=== PATIENT | female | born 1945 | race Two or more races ===

== ENCOUNTER → 2024-11-12 | Outpatient (CLI) | payer MEDICAID ==
[2024-11-12 08:42] LABS: Urine Bacteria None Seen /hpf (None Seen)
[2024-11-12 08:48] LABS: Basophils # (auto) 0 10 ^3/uL (0-0.2); Hemoglobin 13.6 g/dL (12.2-16.2)
[2024-11-12 08:50] LABS: Basophils % (auto) 0.4 % (0.0-2.0); Eosinophils # (auto) 0.7 10 ^3/uL (0-0.8); Eosinophils % (auto) 10.7 % (0.0-7.0); Hematocrit 42.2 % (36.0-46.0); Lymphocytes # (auto) 1.2 10 ^3/uL (0.4-5.4); Mean Corpuscular Hemoglobin 25.6 pg (28.0-32.0); Mean Corpuscular Hgb Conc. 32.2 g/dL (32.0-36.0); Mean Corpuscular Volume 79.5 fL (80.0-100.0); Monocytes # (auto) 0.5 10 ^3/uL (0-1.3); Monocytes % (auto) 6.7 % (0.0-12.0); Neutrophils # (auto) 4.3 10 ^3/uL (1.6-8.6); Neutrophils % (auto) 64.2 % (37.0-80.0); Platelet Count (auto) 296 10^3/uL (140-450); Red Cell Distribution Width 16.3 % (11.8-14.3); White Blood Cell 6.8 10^3/uL (4.4-10.8)
[2024-11-12 10:08] LABS: Alanine Aminotransferase 17 U/L (7-40); Albumin 4.2 g/dL (3.2-4.8); Alkaline Phosphatase 81 U/L (46-116); Anion Gap 7 (5-15); Aspartate Aminotransferase 19 U/L (13-40); BUN/Creatinine Ratio 12.4 (10.0-20.0); Blood Urea Nitrogen 13 mg/dL (9-23); Calcium 9.8 mg/dL (8.7-10.4); Carbon Dioxide 29 mmol/L (20-31); Chloride 105 mmol/L (98-107); Cholesterol 124 mg/dL (< 200); LDL Cholesterol 70 mg/dL (< 100); Potassium 4.8 mmol/L (3.5-5.1); Sodium 141 mmol/L (136-145)
[2024-11-12 10:09] LABS: Bilirubin, Total 0.4 mg/dL (0.2-1.0); Glucose 224 mg/dL (74-106); HDL Cholesterol 33 mg/dL (40-59); Total Protein 7.4 g/dL (5.7-8.2); Triglycerides 152 mg/dL (< 150)
[2024-11-12 11:15] LABS: Urine Blood Negative /uL (Negative); Urine Clarity Clear (Clear); Urine Color Light-Yellow (Yellow); Urine Protein, UAD Negative (Negative); Urine Specific Gravity 1.016 (1.001-1.035); Urine Squamous Epithelial Cell None Seen /hpf (<5); Urine Urobilinogen Normal (Negative); Urine WBC 1 /hpf (0 - 5)
== END | disposition home or self-care (01) ==
LOC: LAB 08:25
PROVIDERS: ATTEND Internal Medicine
DX: E78.49 Other hyperlipidemia (principal); E61.2 Magnesium deficiency; D51.9 Vitamin B12 deficiency anemia, unspecified; E55.9 Vitamin D deficiency, unspecified; R94.6 Abnormal results of thyroid function studies; R73.09 Other abnormal glucose; R68.89 Other general symptoms and signs; R79.89 Other specified abnormal findings of blood chemistry; R82.998 Other abnormal findings in urine; R82.90 Unspecified abnormal findings in urine
CPT/HCPCS: 36415; 80053; 80061; 81001; 82306; 82746; 83036; 84443; 85025; 87086

== ENCOUNTER 2025-01-17 13:18 | Inpatient (IN) | payer MEDICAID ==
[~2025-01-17] VITALS: Ht 157.5 cm; Wt 70.0 kg
[2025-01-17] MEDS: SODIUM CHLORIDE 0.9% 1,000 ML IV ONE ×3 (14:44→18:00)
[2025-01-17] MEDS: ONDANSETRON HCL 4 MG/2 ML VIAL IV ONE (14:44)
[2025-01-17 14:58] VITALS: PULSE 81; RESP 16; O2SAT 97
[2025-01-17 15:01] LABS: Urine Bacteria None Seen /hpf (None Seen)
[2025-01-17] MEDS: FAMOTIDINE (10MG/ML) 2ML VL IV ONE (15:10)
[2025-01-17] MEDS: diphenhdrAMINE HCL 50 MG/1 ML VL IV ONE (15:10)
[2025-01-17 15:12] LABS: Urine Blood Negative /uL (Negative); Urine Clarity Clear (Clear); Urine Color Light-Yellow (Yellow); Urine Protein, UAD Negative (Negative); Urine Specific Gravity 1.018 (1.001-1.035); Urine Squamous Epithelial Cell None Seen /hpf (<5); Urine Urobilinogen Normal (Negative); Urine WBC 1 /HPF (0-5)
[2025-01-17 15:17] LABS: Basophils # (auto) 0.1 10 ^3/uL (0-0.2); Eosinophils # (auto) 0.2 10 ^3/uL (0-0.8); Lymphocytes # (auto) 2.2 10 ^3/uL (0.4-5.4); Monocytes # (auto) 0.4 10 ^3/uL (0-1.3)
[2025-01-17 15:19] LABS: Basophils % (auto) 0.7 % (0.0-2.0); Eosinophils % (auto) 2.2 % (0.0-7.0); Hemoglobin 12.4 g/dL (12.2-16.2); Lymphocytes % (auto) 29.9 % (10.0-50.0); Mean Corpuscular Hemoglobin 25.5 pg (28.0-32.0); Mean Corpuscular Hgb Conc. 31.7 g/dL (32.0-36.0); Mean Corpuscular Volume 80.4 fL (80.0-100.0); Neutrophils # (auto) 4.5 10 ^3/uL (1.6-8.6); Neutrophils % (auto) 61.2 % (37.0-80.0); Platelet Count (auto) 238 10^3/uL (140-450); Red Blood Cells 4.86 10^6/uL (4.0-5.20); Red Cell Distribution Width 16.1 % (11.8-14.3); White Blood Cell 7.3 10^3/uL (4.4-10.8)
[2025-01-17 15:32] LABS: Alanine Aminotransferase 16 U/L (7-40); Alkaline Phosphatase 89 U/L (46-116); Anion Gap 8 (5-15); Aspartate Aminotransferase 16 U/L (13-40); Blood Urea Nitrogen 11 mg/dL (9-23); Calcium 8.9 mg/dL (8.7-10.4); Carbon Dioxide 24 mmol/L (20-31); Sodium 142 mmol/L (136-145); Total Protein 6.5 g/dL (5.7-8.2)
[2025-01-17 15:35] LABS: Bilirubin, Total 0.3 mg/dL (0.2-1.0); Chloride 110 mmol/L (98-107); Glucose 223 mg/dL (74-106)
--- NOTE | 2025-01-17 15:37 | ED.PDOC ---
History of Present Illness(SKN HPI Comments 79y F who presents to the ED for chief complaint of nausea and vomiting acute on chronic. Pt had the following ED course: - per pt son, pt woke up earlier this AM compiling of generalized body itchiness. - pt was given Benadryl at approx 0100 this AM but states she continued to feel itching - pt also at approx 4 AM, started to have multiple vomiting episodes and despite giving Zofran, pt continued to have symptoms and pt was eventually brought to the ED for evaluation - pt now in the ED, has no noted rash and no noted vomiting episodes. Denies any abdominal pain or nausea or vomiting or any other acute symptoms except itchiness that is generalized. - pt son does state pt has history of vomiting episodes in the past and was previously prescribed Zofran - pt otherwise denies shortness of breath, chest pain, fever, cough, chills, diarrhea, patient is not on antibiotics. PMH: DM, HTN, GERD, UTI PSH: cholecystectomy Allergies: penicillins Social history: denies tobacco use, denies ETOH use, denies drug use Aziz: HPI: Poor Historian. REVIEW OF SYSTEMS: CONSTITUTIONAL: Denies acute: fever, diaphoresis, chills, generalized weakness. HEAD: Denies acute: headache, photophobia Eyes: Denies acute: Double vision, vision loss, eye pain, eye discharge. EARS: Denies acute: tinnitus, hearing loss, ear discharge, ear pain, THROAT: Denies acute: sore throat, swelling, difficulty swallowing , pain with swallowing, change in voice. NECK: Denies acute: neck pain, neck swelling, stiff neck. HEART: Denies acute : chest pain, palpitations, LUNGS: Denies acute: SOB, wheezing, cough, hemoptysis ABDOMEN: Denies acute: abdominal pain, , diarrhea, melena , hematemesis, hematochezia SKIN: Denies acute: rash, redness, lesions, . EXTREMITIES: Denies acute: calf pain, numbness, tingling, weakness, denies pain in extremity. Denies acute: Low back pain. Neuro: Denies acute: focal neurological deficit, motor or sensory focal neurological deficit, tremors, seizure like activity, confusion, dizziness, change in mental status, loss of bowel or bladder function, cauda equina like symptoms. : Denies acute: dysuria, hematuria, flank pain, increase in urinary frequency. PSYCH: Denies acute: hallucination, suicidal ideation, homicidal ideation. FEMALE: Denies acute: abnormal vaginal bleeding, foul odor, unusual discharge. PHYSICAL EXAM: General: no acute distress, awake and alert. Head: normocephalic, atraumatic. Neck: supple, trachea is midline, no swelling. Throat: Normal phonation. Eyes:, no erythema, no purulent discharge, no proptosis, no icterus. Heart: regular rate, regular rhythm, no significant murmur appreciated. Lungs: no apparent respiratory distress, Able to speak in full sentences. No wheezing, no rhonchi, no crackles. No stridors Clear to auscultation bilaterally. Abdomen: non tender to palpation, non distended, soft, no guarding, no rebound, + bowel sounds. Neuro: Awake, Alert, oriented to name, self, situation, follows commands GCS=15. Speech is normal. Skin: no petechia, no purpura, no cyanosis, non-pale, not jaundice. Lower extremities: --no - Pitting edema no deformity, no focal swelling, no calf TTP. Makes eye contact. moves all four extremities. Face: no apparent facial droop. Ambulating in the ED independently. ED COURSE: Chief Complaint: Urinary Time Seen by MD: 15:30 Primary Care Provider: SPENSER History of Present Illness: Nurses Notes, Medications, Allergies Allergies: Coded Allergies: Penicillins (Verified Allergy, Unknown, 01/17/25) Information Source: Patient, Relative Mode of Arrival: Ambulatory Brought in by: pt son Was a procedure done? Was a procedure done?: No Differential Diagnosis (INTG) Differential Diagnosis: Other (Sepsis, infection, dehydration, electrolyte abnormality) X-Ray, Labs, Meds, VS Vital Signs Date Time Temp Pulse Resp B/P (MAP) Pulse Ox O2 Delivery O2 Flow Rate FiO2 01/17/25 20:44 85 16 95 Room Air* 0 21 01/17/25 20:43 97.8 85 16 147/68 (94) 95 97.8 01/17/25 18:03 98.0 76 16 150/72 (98) 100 98.0 01/17/25 14:58 81 16 97 Room Air* 0 21 01/17/25 14:58 97.0 81 16 166/73 (104) 97 97.0 01/17/25 13:35 97.4 90 18 152/71 (98) 95 97.4 Lab Test 01/17/25 20:45 01/17/25 18:43 01/17/25 16:40 01/17/25 15:05 Range/Units Lactic Acid Level Pending 3.0 *H 2.3 *H 2.1 *H 0.4-2.0 mmol/L Troponin I High Sensitivity < 3 L < 3 L </=34 ng/L White Blood Count 7.3 4.4-10.8 10^3/uL Red Blood Count 4.86 4.0-5.20 10^6/uL Hemoglobin 12.4 12.2-16.2 g/dL Hematocrit 39.0 36.0-46.0 % Mean Corpuscular Volume 80.4 80.0-100.0 fL Mean Corpuscular Hemoglobin 25.5 L 28.0-32.0 pg Mean Corpuscular Hemoglobin Concent 31.7 L 32.0-36.0 g/dL Red Cell Distribution Width 16.1 H 11.8-14.3 % Platelet Count 238 140-450 10^3/uL Mean Platelet Volume 9.0 6.9-10.8 fL Neutrophils (%) (Auto) 61.2 37.0-80.0 % Lymphocytes (%) (Auto) 29.9 10.0-50.0 % Monocytes (%) (Auto) 6.0 0.0-12.0 % Eosinophils (%) (Auto) 2.2 0.0-7.0 % Basophils (%) (Auto) 0.7 0.0-2.0 % Neutrophils # (Auto) 4.5 1.6-8.6 10 ^3/uL Lymphocytes # (Auto) 2.2 0.4-5.4 10 ^3/uL Monocytes # (Auto) 0.4 0-1.3 10 ^3/uL Eosinophils # (Auto) 0.2 0-0.8 10 ^3/uL Basophils # (Auto) 0.1 0-0.2 10 ^3/uL Nucleated Red Blood Cells 0.0 % Sodium Level 142 136-145 mmol/L Potassium Level 5.0 3.5-5.1 mmol/L Chloride Level 110 H 98-107 mmol/L Carbon Dioxide Level 24 20-31 mmol/L Anion Gap 8 5-15 Blood Urea Nitrogen 11 9-23 mg/dL Creatinine 1.00 0.550-1.02 mg/dL Glomerular Filtration Rate Calc 58 >90 mL/min BUN/Creatinine Ratio 11.0 10.0-20.0 Serum Glucose 223 H 74-106 mg/dL Calcium Level 8.9 8.7-10.4 mg/dL Total Bilirubin 0.3 0.2-1.0 mg/dL Aspartate Amino Transferase (AST) 16 13-40 U/L Alanine Aminotransferase (ALT) 16 7-40 U/L Alkaline Phosphatase 89 46-116 U/L Total Protein 6.5 5.7-8.2 g/dL Albumin 4.0 3.2-4.8 g/dL Test 01/17/25 15:01 Range/Units Urine Color Light-yellow Yellow Urine Clarity Clear Clear Urine pH 5.0 5.0-9.0 Urine Specific [place] 1.018 1.001-1.035 Urine Protein Negative Negative Urine Ketones Negative Negative Urine Blood Negative Negative /uL Urine Nitrite Negative Negative Urine Bilirubin Negative Negative Urine Urobilinogen Normal Negative mg/dL Urine Leukocyte Esterase Negative Negative /uL Urine RBC None seen 0 - 4 /hpf Urine Microscopic WBC 1 0-5 /HPF Urine Squamous Epithelial Cells None seen <5 /hpf Urine Bacteria None seen None Seen /hpf Urine Glucose 4+ H Normal mg/dL Current Medications Medications (Trade) Dose Ordered Sig/Jared Route Start Time Stop Time Status Last Admin Sodium Chloride 1,000 ml @ 1,000 mls/hr Q1H ONCE IV 01/17/25 14:15 01/17/25 15:14 DC 01/17/25 14:44 Ondansetron HCl (Zofran) 8 mg ONCE ONCE IV 01/17/25 14:15 01/17/25 14:16 DC 01/17/25 14:44 Famotidine (Pepcid Injection) 20 mg ONCE ONCE IV 01/17/25 15:00 01/17/25 15:04 DC 01/17/25 15:10 Diphenhydramine HCl (Benadryl Injection) 25 mg ONCE ONCE IV 01/17/25 15:00 01/17/25 15:04 DC 01/17/25 15:10 Sodium Chloride 1,000 ml @ 1,000 mls/hr Q1H ONCE IV 01/17/25 16:00 01/17/25 16:59 DC 01/17/25 17:06 Sodium Chloride 1,000 ml @ 1,000 mls/hr Q1H ONCE IV 01/17/25 17:45 01/17/25 18:44 DC 01/17/25 18:00 Ceftriaxone Sodium 50 ml @ 100 mls/hr ONCE ONCE IV 01/17/25 20:00 01/17/25 20:29 DC 01/17/25 20:35 Time of 1ST Reevaluation: 19:57 Reevaluation 1ST: Resolved Patient Education/Counseling: Diagnosis, Treatment Family Education/Counseling: Diagnosis, Treatment Comments Patient presented with the above HPI.---pruritus---workup was initiated. patient was found with the above mentioned diagnosis. the following medications were ordered: please refer to order lists of meds and tests obtained by myself Dr. Kaye. Patient ED course and VS have been stabilized. Patient has been reassessed in the ED and remained in a stable condition. Pertinent incidental findings were discussed with the patient and/or family. Patient/family voices understanding and is agreeable with plan. Patient has been observed in the ED adequate length of time to insure improvement/stability. Escalation of care considered: Consideration of escalation to observation or admission Despite patient 3 L of normal saline bolus resuscitation, lactic acid continues to rise. Patient was given empiric antibiotics. Patient was ADMITTED to the medicine team for further evaluation and treatment of their presentation. All the reports of any imaging studies that were ordered by myself were reviewed by myself. Departure 1 Departure Time of Disposition: 17:17 Impression: Primary Impression: Pruritus Additional Impression: Elevated lactic acid level Disposition: ADMITTED INPATIENT Admit to: Tele Condition: Guarded Additional Instructions: Discharged With: Self, Relative Critical Care Note Critical Care Time?: No I personally scribed for ADAMA KAYE DO ([email or web address]) on 01/17/25 at 15:37. Electronically submitted by Fawn Welsh ([email or web address]). I personally scribed for ADAMA KAYE DO ([email or web address]) on 01/17/25 at 15:44. Electronically submitted by Fawn Welsh ([email or web address]). ADAMA KAYE DO Jan 17, 2025 15:37
[2025-01-17 15:42] LABS: Lactic Acid w/Reflex 2.1 mmol/L (0.4-2.0)
[2025-01-17] MEDS: cefTRIAXone 1GM/50ML D5W 50 ML IV ONE (20:35)
[2025-01-17 20:44] VITALS: PULSE 85; RESP 16; O2SAT 95
[2025-01-17] MEDS ORDERED: SOD CHL 0.45% 1,000 ML IV SCH (21:15)
[2025-01-17] MEDS ORDERED: DEXTROSE (50%) 50ML SYRG IV PRN (21:15)
[2025-01-17] MEDS ORDERED: ONDANSETRON HCL 4 MG/2 ML VIAL IV PRN (21:15)
[2025-01-17] MEDS ORDERED: ACETAMINOPHEN 325 MG TAB PO PRN (21:15)
[2025-01-17] MEDS ORDERED: HYDROcodone-ACET 5/325MG TAB PO PRN (21:15)
[2025-01-17] MEDS ORDERED: hydrALAZINE HCL 20 MG/ML VL IV PRN (21:15)
[2025-01-17] MEDS ORDERED: DOCUSATE SOD 100 MG CAP PO PRN (21:15)
[2025-01-17] MEDS: ACCU-CHEK COMFORT CURVE STRIP VI SCH (21:42)
[2025-01-17] MEDS: InsuLIN REG 1unit/0.01ml Soln (100units/ml) SC SCH (21:42)
[2025-01-17] MEDS: ATORVASTATIN 20 MG TAB PO SCH (21:47)
--- NOTE | 2025-01-17 22:39 | DVHHP2 ---
History of Present Illness Reason for Visit: Generalized weakness History of Present Illness The patient is a 71 female with past medical history of GERD, UTIs, diabetes mellitus, hypertension, and hyperlipidemia who presented to [facility] ED with complaint of generalized weakness. Patient reports symptoms progressively get worse with intractable nausea and vomiting episodes, getting worse that prompted this visit. Patient was seen and evaluated in the ED laboratory data shows WBC 7.3, platelets 238, sodium 142, potassium 5.0, BUN 11, creatinine 1.00, GFR 58, glucose 223, lactic acid 3.0 trending down to 2.6, troponin < 3. Patient was given IV fluid normal saline bolus, started on IV antibiotic regimen levofloxacin, please see medication orders section in the computer. On my assessment, patient denied chest pain, no headache, no dizziness, no shortness of breath, no abdominal pain, no diarrhea, no nausea, vomiting at this moment, no fever, no chills. Patient admitted evaluation and medical management. Past Medical History DM, HTN, GERD, UTI, HLD Past Surgical History Cholecystectomy Family History Reviewed, noncontributory to the management of this case. Past Social History The patient lives at home, denies smoking, alcohol or illicit drugs abuse. Review of Systems Constitutional: Yes: Weakness; No: Fever, Chills, Sweats, Malaise, Other Eyes: No: Pain, Vision change, Conjunctivae inflammation, Eyelid inflammation, Other, Redness ENT: No: Ear pain, Ear discharge, Nose pain, Nose discharge, Nose congestion, Mouth pain, Mouth swelling, Throat pain, Throat swelling, Other Respiratory: No: Cough, Dry, Shortness of breath, SOB with excertion, Wheezing, Hemoptysis, Pleuritic Pain, Sputum, Wheezing, Other Cardiovascular: No: Chest Pain, Palpitations, Orthopnea, Paroxysmal Noc. Dyspnea, Edema, Lt Headedness, Other Gastrointestinal: Nausea, Vomiting; No: Abdominal Pain, Diarrhea, Constipation, Melena, Hematochezia, Other Genitourinary: No Dysuria, No Frequency, No Incontinence, No Hematuria, No Retention, No Other Musculoskeletal: No: other, neck pain, shoulder pain, arm pain, back pain, hand pain, leg pain, foot pain Skin: No: Rash, Lesions, Jaundice, Bruising, Other Neurological: No: Weakness, Numbness, Incoordination, Change in speech, Confusion, Seizures, Other Allergies: Coded Allergies: Penicillins (Verified Allergy, Unknown, 01/17/25) Medications Current Medications Medications Dose Ordered Sig/Jared Route Start Time Stop Time Status Last Admin Dose Admin Amlodipine Besylate 5 mg DAILY PO 01/18/25 10:00 Hydralazine HCl 10 mg Q6HP PRN IV 01/17/25 21:15 Famotidine 20 mg DAILY IV 01/18/25 10:00 UNV Levofloxacin/ Dextrose 100 ml @ 100 mls/hr DAILY IV 01/18/25 10:00 UNV Sodium Chloride 1,000 ml @ 100 mls/hr Q10H IV 01/17/25 21:15 Diagnostic Test (Pha) 1 strip ACHS 01/17/25 22:00 01/17/25 21:42 1 STRIP Insulin Human Regular HS SC 01/17/25 22:00 Insulin Human Regular AC SC 01/18/25 07:00 Dextrose 50 ml UD PRN IV 01/17/25 21:15 Acetaminophen/ Hydrocodone Bitart 1 tab Q4HP PRN PO 01/17/25 21:15 Ondansetron HCl 4 mg Q4HP PRN IV 01/17/25 21:15 Docusate Sodium 100 mg BIDPRN PRN PO 01/17/25 21:15 Acetaminophen 650 mg Q6HP PRN PO 01/17/25 21:15 Atorvastatin Calcium 20 mg HS PO 01/17/25 22:00 01/17/25 21:47 20 MG Exam Vital Signs Vital Signs Date Time Temp Pulse Resp B/P (MAP) Pulse Ox O2 Delivery O2 Flow Rate FiO2 01/17/25 20:44 85 16 95 Room Air* 0 21 01/17/25 20:43 97.8 147/68 (94) 97.8 General Appearance: Alert, Oriented X3, Cooperative, No acute distress HEENT: Atraumatic, PERRLA, EOMI, Mucous membr. moist/pink Respiratory: Clear to auscultation, Normal air movement Cardiovascular: Regular rate, Normal S1, Normal S2, No murmurs Abdominal: Normal bowel sounds, Soft, No tenderness, No hepatospenomegaly, No masses Extremities: No clubbing, No cyanosis, No edema, Normal pulses, No tenderness/swelling Skin: No rashes, No breakdown, No significant lesion Neuro: Normal speech, Normal tone, Sensation intact, Cranial nerves 3-12 NL, Reflexes 2+, Other (Generalized weakness) Psych/Mental Status: Mental status NL, Mood NL Labs/Xrays Labs Test 01/17/25 21:41 01/17/25 20:45 01/17/25 16:40 01/17/25 15:05 Range/Units POC Glucose 109 H 70-106 mg/dl Lactic Acid Level 2.6 *H 0.4-2.0 mmol/L Troponin I High Sensitivity < 3 L </=34 ng/L White Blood Count 7.3 4.4-10.8 10^3/uL Red Blood Count 4.86 4.0-5.20 10^6/uL Hemoglobin 12.4 12.2-16.2 g/dL Hematocrit 39.0 36.0-46.0 % Mean Corpuscular Volume 80.4 80.0-100.0 fL Mean Corpuscular Hemoglobin 25.5 L 28.0-32.0 pg Mean Corpuscular Hemoglobin Concent 31.7 L 32.0-36.0 g/dL Red Cell Distribution Width 16.1 H 11.8-14.3 % Platelet Count 238 140-450 10^3/uL Mean Platelet Volume 9.0 6.9-10.8 fL Neutrophils (%) (Auto) 61.2 37.0-80.0 % Lymphocytes (%) (Auto) 29.9 10.0-50.0 % Monocytes (%) (Auto) 6.0 0.0-12.0 % Eosinophils (%) (Auto) 2.2 0.0-7.0 % Basophils (%) (Auto) 0.7 0.0-2.0 % Neutrophils # (Auto) 4.5 1.6-8.6 10 ^3/uL Lymphocytes # (Auto) 2.2 0.4-5.4 10 ^3/uL Monocytes # (Auto) 0.4 0-1.3 10 ^3/uL Eosinophils # (Auto) 0.2 0-0.8 10 ^3/uL Basophils # (Auto) 0.1 0-0.2 10 ^3/uL Nucleated Red Blood Cells 0.0 % Sodium Level 142 136-145 mmol/L Potassium Level 5.0 3.5-5.1 mmol/L Chloride Level 110 H 98-107 mmol/L Carbon Dioxide Level 24 20-31 mmol/L Anion Gap 8 5-15 Blood Urea Nitrogen 11 9-23 mg/dL Creatinine 1.00 0.550-1.02 mg/dL Glomerular Filtration Rate Calc 58 >90 mL/min BUN/Creatinine Ratio 11.0 10.0-20.0 Serum Glucose 223 H 74-106 mg/dL Calcium Level 8.9 8.7-10.4 mg/dL Total Bilirubin 0.3 0.2-1.0 mg/dL Aspartate Amino Transferase (AST) 16 13-40 U/L Alanine Aminotransferase (ALT) 16 7-40 U/L Alkaline Phosphatase 89 46-116 U/L Total Protein 6.5 5.7-8.2 g/dL Albumin 4.0 3.2-4.8 g/dL Test 01/17/25 15:01 Range/Units Urine Color Light-yellow Yellow Urine Clarity Clear Clear Urine pH 5.0 5.0-9.0 Urine Specific [place] 1.018 1.001-1.035 Urine Protein Negative Negative Urine Ketones Negative Negative Urine Blood Negative Negative /uL Urine Nitrite Negative Negative Urine Bilirubin Negative Negative Urine Urobilinogen Normal Negative mg/dL Urine Leukocyte Esterase Negative Negative /uL Urine RBC None seen 0 - 4 /hpf Urine Microscopic WBC 1 0-5 /HPF Urine Squamous Epithelial Cells None seen <5 /hpf Urine Bacteria None seen None Seen /hpf Urine Glucose 4+ H Normal mg/dL Assessment/Plan Assessment/Plan Elevated lactic acid level Generalized weakness Diabetes mellitus with hyperglycemia Plan 1. Admit to telemetry unit 2. Breathing treatment 3. Pain control management 4. IV antibiotic management 5. Management of fluids and electrolytes 6. Consultation for hospitalist 7. Diagnostic test chest x-ray 8. DVT prophylaxis on SCDs 9. Repeat labs CBC, CMP in 10. Home medication reviewed and reconciled 11. Continue with current medical management 12. Treatment plan discussed with patient and RN. Patient verbalized understanding. Plan discussed with: Patient, Other (RN) My Orders Orders - CHARITY HERNANDEZ DNP Procedure Category Date Status Time Amlodipine Tablet PHA 01/18/25 In Process (Norvasc Tablet) 10:00 Hydralazine Injection PHA 01/17/25 In Process (Apresoline Inject 21:15 Famotidine Injection PHA 01/18/25 Logged (Pepcid Injection) 10:00 Levofloxacin 500mg PHA 01/18/25 Logged (Levaquin 500mg/ 100m 10:00 Consistent DIET 01/18/25 Transmitted Carb(Ccho)Diabetes Breakfast Sod Chl 0.45% (Sodium PHA 01/17/25 In Process Chloride 0.45% Via 21:15 Glucose Blood PHA 01/17/25 In Process (Accu-Chek Comfort 22:00 Insulin R (Human) PHA 01/17/25 In Process (Insulin R) 22:00 Insulin R (Human) PHA 01/18/25 In Process (Insulin R) 07:00 Dextrose 50% Syringe PHA 01/17/25 In Process 21:15 Allergies ALYCE 01/17/25 In Process 21:01 Code Status CODE 01/17/25 Transmitted 21:01 Oxygen Per Hour RT 01/17/25 Transmitted 21:01 Hydrocodone-Acet PHA 01/17/25 In Process 5/325mg Tab (Bromide 21:15 Ondansetron Hcl PHA 01/17/25 In Process (Zofran) 21:15 Docusate Sodium PHA 01/17/25 In Process Capsule (Colace 21:15 Complete Blood Count LAB 01/18/25 Verified 04:00 Comprehensive LAB 01/18/25 Verified Metabolic Panel 04:00 Condition: Serious ALYCE 01/17/25 In Process 21:01 Acetaminophen Tablet PHA 01/17/25 In Process (Tylenol Tablet) 21:15 Bedrest With Bathroom ALYCE 01/17/25 In Process Privileg 21:01 Sequential ALYCE 01/17/25 In Process Compression Device Atorvastatin (Lipitor) PHA 01/17/25 In Process 22:00 Problem List: (1) Elevated lactic acid level (2) Generalized weakness (3) Diabetes mellitus with hyperglycemia Date of Service: Jan 17, 2025 Billing Provider: CHARITY HERNANDEZ DNP Common Visit Codes: [id number] INP/OBS CARE (HIGH) CHARITY HERNANDEZ DNP Jan 17, 2025 22:39
[2025-01-17] MEDS ORDERED: NITROGLYCERIN 0.4 MG SL TAB SL PRN (22:45)
[2025-01-17] MEDS ORDERED: MORPHINE SULFATE INJ 2 MG/ml SYRG IV PRN (22:45)
[2025-01-17 23:08] VITALS: BP 154/71; PULSE 84; TEMP 98.7; O2SAT 93
[2025-01-18] MEDS ORDERED: InsuLIN REG 1unit/0.01ml Soln (100units/ml) SC SCH (07:00)
[2025-01-18] MEDS ORDERED: levoFLOXacin 500MG 100 ML IV SCH (10:00)
[2025-01-18] MEDS ORDERED: amLODIPine BESYLATE 5 MG TAB PO SCH (10:00)
[2025-01-18] MEDS ORDERED: FAMOTIDINE (10MG/ML) 2ML VL IV SCH (10:00)
== END 2025-01-17 23:57 | disposition left against medical advice (07) | DRG 639 ==
LOC: ER 13:18 → OVERFLOW 22:37 → TELE-WESTW 23:39 → OVERFLOW 23:57
PROVIDERS: ADMIT Nurse Practitioner Family; ATTEND Nurse Practitioner Family
DX: E11.65 Type 2 diabetes mellitus with hyperglycemia (principal); R53.1 Weakness; K21.9 Gastro-esophageal reflux disease without esophagitis; I10 Essential (primary) hypertension; Z53.29 Procedure and treatment not carried out because of patient's decision for other reasons; E78.5 Hyperlipidemia, unspecified; L29.9 Pruritus, unspecified; R79.89 Other specified abnormal findings of blood chemistry; Z90.49 Acquired absence of other specified parts of digestive tract; Z88.0 Allergy status to penicillin; Z79.899 Other long term (current) drug therapy
CPT/HCPCS: 36415; 80053; 81001; 82962; 83605; 84484; 85025; G0378; J2405; J3490